=== PATIENT | male | born 1990 | race Caucasian/White ===

== ENCOUNTER 2018-01-12 10:20 | Emergency (ER) | payer OTHER, BC ==
[2018-01-12 10:25] VITALS: BP 143/92
--- NOTE | 2018-01-12 11:22 | ER Document Report ---
ED General - General Chief Complaint: Cyst Stated Complaint: ABSCESS/BUTTOCKS, SORE THROAT Time Seen by Provider: 01/12/18 11:21 TRAVEL OUTSIDE OF THE [place] IN LAST 30 DAYS: No - HPI Notes: 27-year-old male presents the ED with a draining pilonidal cyst that he noticed approximately 4 days ago and a sore throat that started 2 days ago. Patient has been on oral doxycycline for spider bite course that he just finished 2 days ago. Has not been applying any heat that has been applying ice. Pain is 4 -10, throbbing achy. Patient states he has left-sided pharyngitis denies any qdye-pho-dghodor medications. Denies any history of MRSA. Denies fevers, chills, chest pain,palpitations, shortness of breath, dyspnea, nausea, vomiting, diarrhea, abdominal pain, hematuria,blurred vision, double vision, loss of vision, speech changes, LH, dizziness, syncope, headaches, wheezing, URI, neck pain, weakness, bowel or bladder dysfunction, saddle anesthesia, numbness or tingling in bilateral upper or lower extremities equally, muscle paralysis, weakness in bilateral upper or lower extremities equally or rash. Denies IV drug use. - Related Data Allergies/Adverse Reactions: No Known Allergies Allergy (Verified 01/12/18 10:21) Past Medical History - General Information source: Patient - Social History Smoking Status: Current Every Day Smoker Chew tobacco use (# tins/day): No Frequency of alcohol use: Occasional Drug Abuse: None Family History: Hypertension Patient has suicidal ideation: No Patient has homicidal ideation: No - Past Medical History Cardiac Medical History: Reports: Hx Hypertension Renal/ Medical History: Denies: Hx Peritoneal Dialysis GI Medical History: Reports: Hx Irritable Bowel Psychiatric Medical History: Reports: Hx Anxiety, Hx Depression Past Surgical History: Reports: Hx Oral Surgery - wisdom, Hx Orthopedic Surgery - Right knee, jaw Review of Systems - Review of Systems Constitutional: No symptoms reported EENT: See HPI Cardiovascular: No symptoms reported Respiratory: No symptoms reported Gastrointestinal: No symptoms reported Genitourinary: No symptoms reported Male Genitourinary: No symptoms reported Musculoskeletal: No symptoms reported Skin: No symptoms reported Hematologic/Lymphatic: See HPI Neurological/Psychological: No symptoms reported Physical Exam - Vital signs Vitals: Temp Pulse Resp BP Pulse Ox 98.2 F 83 16 143/92 H 99 07/08/18 10:23 01/12/18 10:23 01/12/18 10:23 01/12/18 10:23 01/12/18 10:23 - Notes Notes: PHYSICAL EXAMINATION: GENERAL: Well-appearing, well-nourished and in no acute distress. HEAD: Atraumatic, normocephalic. EYES: Pupils equal round and reactive to light, extraocular movements intact, sclera anicteric, conjunctiva are normal. ENT: tympanic membranes are normal appearing with pearly color, normal- appearing landmarks and normal light reflex. Hearing is grossly intact. Has normal facial sensation to light touch in 3 branches of the trigeminal nerve. Normal facial movement. The septum is midline. There is no evidence of septal hematoma. The turbinates are without abnormality. No obvious abnormalities to the lips. No swelling no erythema no exudate no angioedema no drooling no trismus bilateral arches equal. Uvula midline. The salivary glands appear unremarkable. The tongue is midline. The posterior pharynx is with erythema but without exudate. The tonsils are normal appearing. NECK: Normal range of motion, supple without lymphadenopathy LUNGS: Breath sounds clear to auscultation bilaterally and equal. No wheezes rales or rhonchi. HEART: Regular rate and rhythm without murmurs ABDOMEN: Soft, nontender, nondistended abdomen. No guarding, no rebound. No masses appreciated. Musculoskeletal: Normal range of motion, no pitting or edema. No cyanosis. NEUROLOGICAL: Cranial nerves grossly intact. Normal speech, normal gait. Normal sensory, motor exams PSYCH: Normal mood, normal affect. SKIN: Warm, Dry, normal turgor, no rashes or lesions noted. Noted draining right pilonidal cysts approximately 0.5 cm x 0.5 cm, no surrounding erythema or induration. No surrounding lymphadenopathy. Depth approximately 0.4 cm Course - Re-evaluation Re-evalutation: 01/12/18 12:07 Healthy 27-year-old male who is afebrile vitals stable and in no distress presents for a draining pilonidal cyst and complaints of sore throat. Patient did just finish approximately 2 days ago course of doxycycline 100 mg twice a day for 10 days for a spider bite to his forearm. Patient states the provider replacement doxycycline was through telemetry med, denies history of MRSA. Denies any bowel or bladder dysfunction, no saddle anesthesia. Pain is 4 out of 10, throbbing achy does find some relief with taking [id number] ibuprofen and Tylenol. The patient that his pharynx does not appear to have any exudate, low suspicion for strep pharyngitis, rapid strep test negative. Will place patient on Bactrim and Keflex for 10 days, advised to apply warm compress to site 20 minutes on 20 minutes off several times a day. I have reevaluated this patient multiple times and no significant life threatening changes, no signs of toxicity, sepsis or peritonitis are noted. The patient and I have discussed the diagnosis and risks, and we agree with discharging home and close follow-up. We also discussed returning to the Emergency Department immediately if new or worsening symptoms occur with the understanding that symptoms and presentations can change. At this time will discharge with return precautions and follow-up recommendations. Verbal discharge instructions given a the bedside and opportunity for questions given. We have discussed the symptoms which are most concerning (e.g., saddle anesthesia, urinary or bowel incontinence or retention, changing or worsening pain) that necessitate immediate return. Medication warnings reviewed. All questions and concerns answered by this provider. Patient is in agreement with this plan and has verbalized understanding of return precautions and the need for primary care follow-up in the next 24-72 hours. Patient verbalized understanding of plan of care and agree with plan of care. - Vital Signs Vital signs: Temp Pulse Resp BP Pulse Ox 98.2 F 83 16 143/92 H 99 01/12/18 10:23 01/12/18 10:23 01/12/18 10:23 01/12/18 10:01/12/18 10:23 Discharge - Discharge Clinical Impression: Pilonidal cyst, Pharyngitis Condition: Stable Disposition: HOME, SELF-CARE Instructions: Cellulitis ([facility]), MRSA Cellulitis ([facility]), Sore Throat ([facility]) Additional Instructions: The rash is likely due to infection of your skin. You need to take the antibiotics as prescribed. Do not stop even if the rash goes away until you have completed all the antibiotics. The area of redness was traced out here in the emergency department with a marking pen. You need to return to emergency department if the redness spreads outside of this area by more than 2 cm in any direction. You should also return if you develop fevers with temperature greater than 101, persistent vomiting, worsening pain, or have any other symptoms that are concerning to you. Your strep test is negative. Your symptoms are likely due to an viral infection and will resolve in the next 1-2 weeks. You have also been given a dose of steroids to help with your throat discomfort. Please continue to take ibuprofen 600 mg every 6 hours or Tylenol 1000 mg every 6 hours as needed for throat discomfort. You can also gargle with salt water. Continue to drink plenty of fluids. Follow-up with your primary care doctor in the next several days. Return if you become unable to swallow, have difficulty breathing, pass out, have persistent vomiting that prevents you from being able to tolerate fluids, or have any other symptoms that are concerning to you. Prescriptions: Cephalexin Monohydrate [Keflex 500 mg Capsule] 500 mg PO BID #20 capsule Sulfamethoxazole/Trimethoprim [Bactrim Ds Tablet] 1 each PO BID #20 tablet Forms: Return to Work Referrals: CHADWICK SANDERSON MD [ACTIVE STAFF] - Follow up as needed
== END 2018-01-12 11:35 | disposition home or self-care (01) ==
LOC: ER 10:20
DX: L05.91 Pilonidal cyst without abscess (principal); J02.9 Acute pharyngitis, unspecified; I10 Essential (primary) hypertension; F17.200 Nicotine dependence, unspecified, uncomplicated
CPT/HCPCS: 87070; 87880; 99283

== ENCOUNTER 2018-03-13 09:50 | Day surgery (SDC) | payer BC, OTHER ==
[2018-03-06 09:36] LABS: HEMATOCRIT 47.6 % (37.9-51.0); HEMOGLOBIN 16.2 g/dL (13.5-17.0); MEAN CORPUSCULAR HEMOGLOBIN 29.5 pg (27.0-33.4); MEAN CORPUSCULAR VOLUME 87 fl (80-97); PLATELET COUNT 194 10^3/uL (150-450); RED BLOOD COUNT 5.49 10^6/uL (4.35-5.55); WHITE BLOOD COUNT 6.7 10^3/uL (4.0-10.5)
[2018-03-06 10:01] LABS: ANION GAP 12 (5-19); BLOOD UREA NITROGEN 11 mg/dL (7-20); CARBON DIOXIDE 29 mmol/L (22-30); CHLORIDE 103 mmol/L (98-107); GLUCOSE 85 mg/dL (75-110); POTASSIUM 4.4 mmol/L (3.6-5.0); SODIUM 144.4 mmol/L (137-145)
[~2018-03-13 09:50] MED LIST: BUPIVACAINE HCL 0.5 % INJ/PF 30 ML SDV ONE; CEFOXITIN SODIUM 2 GM in DEXTROSE 5%-WATER 100 ML IV PRN; DIPHENHYDRAMINE HCL 50 MG/ML VIAL IV PRN; FENTANYL CITRATE INJ/PF 100 MCG/2 ML AMPUL IV PRN; FENTANYL CITRATE INJ/PF 100 MCG/2 ML AMPUL ONE; LACTATED RINGERS 1000 ML IV PRN; LIDOCAINE 0.5% INJ-PF (5 MG/ML) 50 ML SDV SUBCUT PRN; MEPERIDINE HCL/PF INJ 25 MG/1 ML DISP.SYRIN IV PRN; MIDAZOLAM 2 MG/2 ML INJ ONE; MORPHINE SULFATE 10 MG/ML INJ IV PRN; OXYCODONE-ACETAMINOPHEN 5-325 MG TABLET PO PRN; PROMETHAZINE HCL INJ 25 MG/1 ML VIAL IV PRN; PROPOFOL INJ 200 MG/20 ML VIAL IV ONE
--- NOTE | 2018-03-13 10:04 | Discharge Summary ---
Discharge Summary (SDC) - Discharge Final Diagnosis: pilonidal cyst Date of Surgery: 03/13/18 Discharge Date: 03/13/18 Condition: Stable Referrals: LAURA TOVAR MD [Primary Care Provider] - Discharge Diet: As Tolerated Respiratory Treatments at Home: Deep Breathing/Coughing, Incentive Spirometer Discharge Activity: Balance Activity w/Rest Home Care Assistance: None Needed Report the Following to Your Physician Immediately: Shortness of Breath, Nausea , Vomiting, Increase in Pain, Fever over 101 Degrees, Unusual Bleeding, Redness , Swelling, Warmth
--- NOTE | 2018-03-13 10:08 | Operative Report ---
Nonrecallable Operative Report DATE OF SURGERY: 03/13/18 PREOPERATIVE DIAGNOSIS: Pilonidal cyst, symptomatic POSTOPERATIVE DIAGNOSIS: Same as above OPERATION: Excision of pilonidal cyst. SURGEON: JOHN HINTON ANESTHESIA: GA TISSUE REMOVED OR ALTERED: Pilonidal cyst COMPLICATIONS: None apparent ESTIMATED BLOOD LOSS: Minimal PROCEDURE: Drains/implants: None. Procedure in detail: After informed consent was obtained, the patient was brought into the operating room and laid in the prone jackknife position. The area of the sacrum, buttocks, and pilonidal area were prepped and draped in normal sterile fashion. A 15 blade scalpel was used to create an elliptical incision in the midline, surrounding the pilonidal cyst and fistula. The dissection was carried down to the sacral fascia using sharp dissection and Bovie electrocautery. The cyst was removed in its entirety. Lateral skin flaps were raised. The subcutaneous tissue was closed using 2-0 Vicryl suture in simple running fashion. The overlying skin was closed using 0 Vicryl suture in vertical mattress fashion. A dressing was placed, and the procedure was concluded. Sponge, instrument, and needle counts were correct 2. Condition: Stable.
[2018-03-13] MEDS ORDERED: HYDROCODONE/ACETAMINOPHEN 5-325 MG TABLET ONE (10:36)
[2018-03-13 13:35] VITALS: BP 123/85
[2018-03-13] MEDS ORDERED: SUCCINYLCHOLINE CHLORIDE INJ 200 MG/10 ML VIAL ONE (15:03)
[2018-03-13] MEDS ORDERED: ONDANSETRON HCL INJ/PF 4 MG/2 ML SDV ONE (15:03)
[2018-03-13] MEDS ORDERED: ROCURONIUM BROMIDE INJ 50 MG/5 ML VIAL IV ONE (15:03)
[2018-03-13] MEDS ORDERED: KETOROLAC TROMETHAMINE 60 MG/2 ML SDV ONE (15:03)
[2018-03-13] MEDS ORDERED: DEXAMETHASONE SOD PHOSPHATE INJ 4 MG/1 ML VIAL ONE (15:03)
== END 2018-03-13 11:35 | disposition home or self-care (01) ==
LOC: OROUT 09:50
PROVIDERS: ATTEND Surgery
DX: L05.91 Pilonidal cyst without abscess (principal); I10 Essential (primary) hypertension; G43.909 Migraine, unspecified, not intractable, without status migrainosus; F32.9 Major depressive disorder, single episode, unspecified; F17.210 Nicotine dependence, cigarettes, uncomplicated; Z79.1 Long term (current) use of non-steroidal anti-inflammatories (NSAID); Z79.899 Other long term (current) drug therapy
CPT/HCPCS: 36415; 85027; 80048; 88304 ×2; 11770; J2250; J3490 ×2; J1100; J0694; J1885; J3010; J0330; J2405; J2704; 300

== ENCOUNTER 2018-03-25 21:55 | Observation (INO) | payer BC ==
--- NOTE | 2018-03-25 23:45 | ER Document Report ---
ED Medical Screen (RME) - General Chief Complaint: Rectal Bleeding Stated Complaint: POST OP BLEED FROM CYST Time Seen by Provider: 03/25/18 23:41 Mode of Arrival: Ambulatory Information source: Patient Notes: 27-year-old male presents to ED for complaint of rectal bleeding. He states that he had a pilonidal cyst lesion surgery on 03/22/2018 by [facility] at [facility]. States that 2 days ago the pilonidal cyst started swelling again and becoming more painful. He states that he was seen in [place] at an urgent care and started on Keflex 500 mg 4 times daily. He states about 2114 today he noticed some drainage from the cyst and put a pad on it. He took a shower and noticed more bleeding. He states his got one set of gauze and has not had to change them as yet. Patient is alert and oriented respirations regular unlabored speaking in full sentences walks with a even steady gait. Patient is no acute distress at this moment. I have greeted and performed a rapid initial assessment of this patient. A comprehensive ED assessment and evaluation of the patient, analysis of test results and completion of medical decision making process will be conducted by an additional ED providers. TRAVEL OUTSIDE OF THE [place] IN LAST 30 DAYS: No - Related Data Allergies/Adverse Reactions: No Known Allergies Allergy (Verified 03/06/18 08:20) Past Medical History - Past Medical History Cardiac Medical History: Reports: Hx Hypertension Denies: Hx Coronary Artery Disease, Hx Heart Attack Pulmonary Medical History: Denies: Hx Asthma, Hx Bronchitis, Hx COPD, Hx Pneumonia Neurological Medical History: Denies: Hx Cerebrovascular Accident, Hx Seizures Renal/ Medical History: Denies: Hx Peritoneal Dialysis GI Medical History: Reports: Hx Irritable Bowel Musculoskeltal Medical History: Denies Hx Arthritis Psychiatric Medical History: Reports: Hx Anxiety, Hx Depression Past Surgical History: Reports: Hx Oral Surgery - wisdom, Hx Orthopedic Surgery - Right knee, jaw - Immunizations Hx Diphtheria, Pertussis, Tetanus Vaccination: Yes Influenza Administration Date for 04/2017 - 09/2017 Season: 04/07/18 Physical Exam - Vital signs Vitals: Temp Pulse Resp BP Pulse Ox 98.2 F 118 H 20 138/96 H 100 03/25/18 21:56 03/25/18 21:56 03/25/18 21:56 03/25/18 21:56 03/25/18 21:56 Course - Vital Signs Vital signs: Temp Pulse Resp BP Pulse Ox 98.2 F 118 H 20 138/96 H 100 03/25/18 21:56 03/25/18 21:56 03/25/18 21:56 03/25/18 21:56 03/25/18 21:56 Doctor's Discharge - Discharge Referrals: LAURA TOVAR MD [Primary Care Provider] - Follow up as needed
[2018-03-26] MEDS ORDERED: ONDANSETRON HCL INJ/PF 4 MG/2 ML SDV IV ONE (03:10)
[2018-03-26] MEDS ORDERED: MORPHINE SULFATE 10 MG/ML INJ IV ONE (03:10)
--- NOTE | 2018-03-26 03:11 | ER Document Report ---
ED Skin Rash/Insect Bite/Abscs - General Chief Complaint: Rectal Bleeding Stated Complaint: POST OP BLEED FROM CYST Time Seen by Provider: 03/25/18 23:41 Mode of Arrival: Ambulatory Notes: Patient is a 27-year-old male that comes of swelling and pain in the pilonidal area. He had surgery on a pilonidal cyst on 03/13/[address] Alegria at this hospital. He states that 2 days ago he started having swelling and increased pain, this has worsened since that time, he states he has also had some bleeding from the area. He was seen yesterday at urgent care, started on Keflex 500 mg 4 times a day. He denies fever or chills, nausea or vomiting, denies any other complaints. He smokes, denies alcohol, denies recreational drugs, only other medical history reported is orthopedic surgery and hypertension. TRAVEL OUTSIDE OF THE [place] IN LAST 30 DAYS: No - Related Data Allergies/Adverse Reactions: No Known Allergies Allergy (Verified 03/06/18 08:20) Past Medical History - General Information source: Patient - Social History Smoking Status: Current Some Day Smoker Frequency of alcohol use: Occasional Drug Abuse: None Lives with: Family Family History: Hypertension Patient has suicidal ideation: No Patient has homicidal ideation: No - Past Medical History Cardiac Medical History: Reports: Hx Hypertension Denies: Hx Coronary Artery Disease, Hx Heart Attack Pulmonary Medical History: Denies: Hx Asthma, Hx Bronchitis, Hx COPD, Hx Pneumonia Neurological Medical History: Denies: Hx Cerebrovascular Accident, Hx Seizures Renal/ Medical History: Denies: Hx Peritoneal Dialysis GI Medical History: Reports: Hx Irritable Bowel Musculoskeletal Medical History: Denies Hx Arthritis Psychiatric Medical History: Reports: Hx Anxiety, Hx Depression Past Surgical History: Reports: Hx Oral Surgery - wisdom, Hx Orthopedic Surgery - Right knee, jaw - Immunizations Hx Diphtheria, Pertussis, Tetanus Vaccination: Yes Review of Systems - Review of Systems Constitutional: No symptoms reported EENT: No symptoms reported Cardiovascular: No symptoms reported Respiratory: No symptoms reported Gastrointestinal: No symptoms reported Genitourinary: No symptoms reported Male Genitourinary: No symptoms reported Musculoskeletal: No symptoms reported Skin: See HPI Hematologic/Lymphatic: No symptoms reported Neurological/Psychological: No symptoms reported Physical Exam - Vital signs Vitals: Temp Pulse Resp BP Pulse Ox 98.2 F 118 H 20 138/96 H 100 03/25/18 21:56 03/25/18 21:56 03/25/18 21:56 03/25/18 21:56 03/25/18 21:56 - Notes Notes: GENERAL: Alert, interacts well. No acute distress. HEAD: Normocephalic, atraumatic. EYES: Pupils equal, round, and reactive to light. Extraocular movements intact. ENT: Oral mucosa moist, tongue midline. NECK: Full range of motion. Supple. Trachea midline. LUNGS: Clear to auscultation bilaterally, no wheezes, rales, or rhonchi. No respiratory distress. HEART: Regular rate and rhythm. No murmur ABDOMEN: Soft, non-tender. Non-distended. Bowel sounds present in all 4 quadrants. EXTREMITIES: Moves all 4 extremities spontaneously. No edema, normal radial and dorsalis pedis pulses bilaterally. No cyanosis. BACK: no cervical, thoracic, lumbar midline tenderness. No saddle anesthesia, normal distal neurovascular exam. NEUROLOGICAL: Alert and oriented x3. Normal speech. [cranial nerves II through XII grossly intact]. PSYCH: Normal affect, normal mood. SKIN: Pilonidal region with postoperative sutures, there is dried blood just below the area, there is some swelling up and towards the left side of the surgical area, there is some erythema and tenderness. No purulent drainage. No spreading cellulitis. Otherwise unremarkable exam. Course - Re-evaluation Re-evalutation: There is swelling and erythema over the surgical site with tenderness in the area, no current bleeding, there is an opening where it appears to have already been bleeding. No fever, patient initially mildly tachycardic, he was given pain medicine. Otherwise unremarkable physical exam. Discussed with Dr. Quarles, general surgeon, he recommends labs, states that he will evaluate the patient. CBC, chemistry unremarkable. Dr. Quarles evaluated patient, admitting to observation on the surgical service. Patient states agreement with this plan. - Vital Signs Vital signs: Temp Pulse Resp BP Pulse Ox 98 F 70 14 132/68 H 98 03/26/18 05:27 03/26/18 05:27 03/26/18 05:27 03/26/18 05:27 03/26/18 05:27 - Laboratory Result Diagrams: 03/26/18 03:26 03/26/18 03:26 Discharge - Discharge Clinical Impression: Postoperative hematoma Qualifiers: Surgical complication system/body Area: subcutaneous tissue Procedure type: dermatologic Qualified Code(s): L76.31 - Postprocedural hematoma of skin and subcutaneous tissue following a dermatologic procedure Condition: Stable Disposition: ADMITTED OBSERVATION Admitting Provider: Surgicalist Unit Admitted: Surgical Floor
[2018-03-26 03:35] LABS: ABSOLUTE EOSINOPHILS # (AUTO) 0.1 10^3/uL (0.0-0.6); ABSOLUTE LYMPHOCYTES (AUTO) 2.1 10^3/uL (0.5-4.7); ABSOLUTE MONOCYTES (AUTO) 0.9 10^3/uL (0.1-1.4); ABSOLUTE NEUT (AUTO) 5.6 10^3/uL (1.7-8.2); BASOPHILS % (AUTO) 0.5 % (0-2); EOSINOPHILS % (AUTO) 1.3 % (0-6); HEMATOCRIT 40.9 % (37.9-51.0); HEMOGLOBIN 14.1 g/dL (13.5-17.0); LYMPHOCYTES % (AUTO) 23.4 % (13-45); MEAN CORPUSCULAR HEMOGLOBIN 29.9 pg (27.0-33.4); MEAN CORPUSCULAR HGB CONC 34.4 g/dL (32.0-36.0); MEAN CORPUSCULAR VOLUME 87 fl (80-97); MONOCYTES % (AUTO) 10.5 % (3-13); PLATELET COUNT 254 10^3/uL (150-450); RED BLOOD COUNT 4.71 10^6/uL (4.35-5.55); RED CELL DISTRIBUTION WIDTH 13.4 % (11.5-14.0); SEGMENTED NEUTROPHILS % (AUTO) 64.3 % (42-78); TOTAL CELLS COUNTED % (AUTO) 100 %; WHITE BLOOD COUNT 8.8 10^3/uL (4.0-10.5)
[2018-03-26 04:54] LABS: ANION GAP 9 (5-19); BLOOD UREA NITROGEN 14 mg/dL (7-20); CALCIUM 9.5 mg/dL (8.4-10.2); CARBON DIOXIDE 27 mmol/L (22-30); CHLORIDE 103 mmol/L (98-107); GLUCOSE 87 mg/dL (75-110); SODIUM 139.4 mmol/L (137-145)
--- NOTE | 2018-03-26 05:25 | PDOC H&P ---
History of Present Illness Admission Date/PCP: LAURA TOVAR MD Patient complains of: Buttocks pain History of Present Illness: PATO CONSTANTINO is a 27 year old male status post pilonidal cyst excision couple weeks ago. Patient's postoperative course was noteworthy for diffuse bruising and postoperative pain requiring narcotics. Patient noted acute worsening of his swelling several days ago with a spontaneous drainage of blood but not pus 1 day ago. Patient was seen at an urgent care center and was placed on Keflex. Patient denies any fevers or chills. He does smoke. He has no history of diabetes. Past Medical History Cardiac Medical History: Reports: Hypertension Denies: Coronary Artery Disease, Myocardial Infarction Pulmonary Medical History: Denies: Asthma, Bronchitis, Chronic Obstructive Pulmonary Disease (COPD), Pneumonia Neurological Medical History: Denies: Seizures Musculoskeltal Medical History: Denies: Arthritis Psychiatric Medical History: Reports: Depression Hematology: Denies: Anemia Past Surgical History Past Surgical History: Reports: Orthopedic Surgery - Right knee, jaw Social History Smoking Status: Current Every Day Smoker Frequency of Alcohol Use: Occasional Family History Family History: Hypertension Parental Family History Reviewed: No Children Family History Reviewed: No Sibling(s) Family History Reviewed.: No Medication/Allergy Home Medications: Bupropion HCl [Bupropion HCl Sr] 150 mg PO BID 03/06/18 Celecoxib [Celebrex 200 mg Capsule] 200 mg PO ONCE PRN 03/06/18 Losartan/Hydrochlorothiazide [Losartan-Hctz 50-12.5 mg Tab] 1 each PO DAILY Tramadol HCl 50 mg PO TID PRN 03/06/18 Allergies/Adverse Reactions: No Known Allergies Allergy (Verified 03/06/18 08:20) Physical Exam Vital Signs: Temp Pulse Resp BP Pulse Ox 98.2 F 118 H 20 138/96 H 100 03/25/18 21:56 03/25/18 21:56 03/25/18 21:56 03/25/18 21:56 03/25/18 21:56 Intake & Output 03/24/18 03/25/18 03/26/18 06:59 06:59 06:59 Weight 88.904 kg General appearance: PRESENT: no acute distress, cooperative Eye exam: PRESENT: conjunctiva pink Neck exam: PRESENT: other - Supple with no tenderness and no masses. Respiratory exam: PRESENT: clear to auscultation kianna Cardiovascular exam: PRESENT: RRR GI/Abdominal exam: PRESENT: other - Soft, nondistended, nontender to palpation. Extremities exam: PRESENT: other - No swelling. Neurological exam: PRESENT: alert, awake Psychiatric exam: PRESENT: appropriate affect Skin exam: PRESENT: warm, other - Mid sacral wound with the Vicryl sutures in place all intact with a small opening inferiorly with no active drainage. Diffuse bruising. Mild erythematous superiorly with some swelling and tenderness. Results Laboratory Results: 03/26/18 03:26 03/26/18 03:26 03/26/18 03/26/18 03:26 03:26 WBC 8.8 RBC 4.71 Hgb 14.1 Hct 40.9 MCV 87 MCH 29.9 MCHC 34.4 RDW 13.4 Plt Count 254 Seg Neutrophils % 64.3 Lymphocytes % 23.4 Monocytes % 10.5 Eosinophils % 1.3 Basophils % 0.5 Absolute Neutrophils 5.6 Absolute Lymphocytes 2.1 Absolute Monocytes 0.9 Absolute Eosinophils 0.1 Absolute Basophils 0.0 Sodium 139.4 Potassium 4.0 Chloride 103 Carbon Dioxide 27 Anion Gap 9 BUN 14 Creatinine 0.85 Est GFR ( Amer) > 60 Est GFR (Non-Af Amer) > 60 Glucose 87 Calcium 9.5 Assessment & Plan - Diagnosis (1) Postoperative hematoma Qualifiers: Surgical complication system/body Area: subcutaneous tissue Is this a current diagnosis for this admission?: Yes Plan: Postoperative hematoma after pilonidal cystectomy. With the spontaneous drainage yesterday. Patient does have some erythema superiorly but exam reveals that most of the hematoma has spontaneously drained. Will admit the patient and place him on IV antibiotics. Dr. Alegria (his surgeon) will be available this morning and I will discuss his case with him.
[2018-03-26] MEDS: CEFAZOLIN 1 GM/D5W RTU 1 GM/50 ML RTUPB IV SCH ×3 (06:33→17:33)
[2018-03-26] MEDS: DEXTROSE 5%-1/2 NORMAL SALINE 1,000 ML IV PRN (07:45)
[2018-03-26] MEDS: MORPHINE SULFATE 10 MG/ML INJ IV PRN ×3 (08:07→20:58)
[2018-03-27] MEDS: CEFAZOLIN 1 GM/D5W RTU 1 GM/50 ML RTUPB IV SCH ×3 (00:03→12:42)
[2018-03-27] MEDS: DEXTROSE 5%-1/2 NORMAL SALINE 1,000 ML IV PRN (05:04)
[2018-03-27] MEDS: MORPHINE SULFATE 10 MG/ML INJ IV PRN (06:34)
--- NOTE | 2018-03-27 07:40 | PDOC PROGRESS REPORT ---
Subjective Progress Note for:: 03/27/18 Subjective:: This is a 27-year-old male status post pilonidal cyst excision. The patient had a large hematoma. The hematoma is now decompressing. The patient denies fevers, chills, nausea, vomiting or chest pain, dizziness, orthostasis, abdominal pain, constipation, melena. He does report pain in the pilonidal/ sacral area. Reason For Visit: POSTOPERATIVE HEMATOMA STATUS POST PILONIDAL Physical Exam Vital Signs: Temp Pulse Resp BP Pulse Ox 98.8 F 64 18 112/58 L 98 03/27/18 04:00 03/27/18 04:00 03/27/18 04:00 03/27/18 04:00 03/27/18 04:00 Intake & Output 03/26/18 03/27/18 03/28/18 06:59 06:59 06:59 Intake Total 1250 Balance 1250 Weight 88.9 kg General appearance: PRESENT: no acute distress Head exam: PRESENT: atraumatic, normocephalic Eye exam: PRESENT: EOMI, PERRLA. ABSENT: scleral icterus Mouth exam: PRESENT: neck supple Teeth exam: ABSENT: poor dentation Neck exam: ABSENT: lymphadenopathy, meningismus, tenderness, thyromegaly, tracheal deviation Cardiovascular exam: PRESENT: RRR Pulses: PRESENT: normal radial pulses Vascular exam: PRESENT: normal capillary refill. ABSENT: pallor GI/Abdominal exam: PRESENT: soft. ABSENT: distended, tenderness Rectal exam: ABSENT: deferred Extremities exam: ABSENT: clubbing Neurological exam: PRESENT: alert, awake, oriented to person, oriented to place , oriented to time, oriented to situation Psychiatric exam: ABSENT: agitated, anxious, depressed Skin exam: PRESENT: other - Large hematoma to the pilonidal area. Draining old blood this morning. No erythema Assessment & Plan - Diagnosis (1) Postoperative hematoma Qualifiers: Surgical complication system/body Area: subcutaneous tissue Procedure type : dermatologic Qualified Code(s): L76.31 - Postprocedural hematoma of skin and subcutaneous tissue following a dermatologic procedure Is this a current diagnosis for this admission?: Yes - Plan Summary Plan Summary: This is a 27-year-old male with a postoperative hematoma in the pilonidal area. The patient has had Maeve he is decompression of his hematoma. It continues to drain. I have recommended washout of the hematoma with packing. The patient has agreed to this. Risks/benefits discussed, informed consent obtained, and all questions answered.
[2018-03-27] MEDS ORDERED: BUPIVACAINE HCL 0.5 % INJ/PF 30 ML SDV ONE (09:24)
[2018-03-27] MEDS ORDERED: CEFAZOLIN INJ 1 GM VIAL ONE (12:20)
[2018-03-27] MEDS ORDERED: MIDAZOLAM 2 MG/2 ML INJ ONE (12:29)
[2018-03-27] MEDS ORDERED: ONDANSETRON HCL INJ/PF 4 MG/2 ML SDV ONE (12:29)
[2018-03-27] MEDS ORDERED: FENTANYL CITRATE INJ/PF 100 MCG/2 ML AMPUL ONE (12:29)
[2018-03-27] MEDS ORDERED: KETAMINE HCL INJ 500 MG/10 ML VIAL ONE (12:29)
[2018-03-27] MEDS ORDERED: DEXAMETHASONE SOD PHOSPHATE INJ 4 MG/1 ML VIAL ONE (12:29)
[2018-03-27] MEDS ORDERED: ACETAMINOPHEN 1,000 MG/100 ML RTUPB IV ONE (12:30)
[2018-03-27] MEDS ORDERED: PROPOFOL INJ 200 MG/20 ML VIAL IV ONE (12:31)
[2018-03-27] MEDS ORDERED: LIDOCAINE 1% INJ-PF (10 MG/ML) 30 ML SDV ONE (12:40)
[2018-03-27] MEDS ORDERED: FENTANYL CITRATE INJ/PF 100 MCG/2 ML AMPUL IV PRN ×3 (12:52)
[2018-03-27] MEDS ORDERED: PROMETHAZINE HCL INJ 25 MG/1 ML VIAL IV PRN ×2 (12:52)
[2018-03-27] MEDS ORDERED: DIPHENHYDRAMINE HCL 50 MG/ML VIAL IV PRN (12:52)
[2018-03-27] MEDS ORDERED: ONDANSETRON HCL INJ/PF 4 MG/2 ML SDV IV PRN (12:52)
[2018-03-27] MEDS ORDERED: MEPERIDINE HCL/PF INJ 25 MG/1 ML DISP.SYRIN IV PRN (12:52)
[2018-03-27] MEDS ORDERED: MORPHINE SULFATE 10 MG/ML INJ IV PRN (12:52)
[2018-03-27] MEDS ORDERED: OXYCODONE-ACETAMINOPHEN 5-325 MG TABLET PO PRN ×2 (12:52)
--- NOTE | 2018-03-27 13:23 | Operative Report ---
Nonrecallable Operative Report DATE OF SURGERY: 03/27/18 PREOPERATIVE DIAGNOSIS: Hematoma at pilonidal cyst site. POSTOPERATIVE DIAGNOSIS: Same as above. OPERATION: Evacuation of large hematoma at site of pilonidal surgery. SURGEON: JOHN HINTON ANESTHESIA: LMAC TISSUE REMOVED OR ALTERED: 50 cc of old hematoma COMPLICATIONS: None apparent ESTIMATED BLOOD LOSS: 50 cc of old hematoma PROCEDURE: Drains/implants: 15 Sami round Samuel drain. Procedure in detail: After informed consent was obtained, the patient was brought to the operating room and laid in the left lateral decubitus position. The sacrum and pilonidal area were prepped and draped in a normal sterile fashion. Several sutures in the inferior portion were removed. A large hematoma was then identified. This was evacuated and irrigated. A 15 Sami round Samuel drain was placed into the cavity through a separate stab incision. The skin was then closed using 2-0 nylon suture. A dressing was placed, and the procedure was concluded. All sponge, instrument, and needle counts were correct 2. Condition: Stable.
[2018-03-27] MEDS ORDERED: HYDROCODONE/ACETAMINOPHEN 10-325 MG TABLET PO PRN (14:27)
[2018-03-27] MEDS ORDERED: KETOROLAC TROMETHAMINE INJ/PF 30 MG/1 ML SDV IV PRN (14:27)
[2018-03-27 18:28] VITALS: BP 112/58
== END 2018-03-27 19:15 | disposition home or self-care (01) ==
LOC: ER 21:55 → EH 03-26 05:25 → 2N 03-26 12:24
PROVIDERS: ATTEND Surgery
PROC: 0H98XZZ Drainage of Buttock Skin, External Approach (ICD-10-PCS; principal; 2018-03-27 13:15)
DX: L76.32 Postprocedural hematoma of skin and subcutaneous tissue following other procedure (principal); Y83.8 Other surgical procedures as the cause of abnormal reaction of the patient, or of later complication, without mention of misadventure at the time of the procedure; I10 Essential (primary) hypertension; F17.200 Nicotine dependence, unspecified, uncomplicated
CPT/HCPCS: 99284; 96374; 96375; 36415; 87040; 85025; 80048; 10140; G0378 ×3; J2250; J3490 ×2; J0690 ×3; J1100; J3010; J1885; J2270 ×2; J2405 ×2; J2704; J0131; 300